=== PATIENT | female | born 1980 | race Caucasian/White ===

== ENCOUNTER → 2017-05-16 | Outpatient (CLI) | payer BC ==
[~2017-05-16] MED LIST: AZIT250T PO; BCPILLS PO; DAYQLIQ; GFNSR600 PO
== END | disposition home or self-care (01) ==
LOC: C.PAPS 08:18
PROVIDERS: ATTEND Obstetrics & Gynecology
DX: N87.1 Moderate cervical dysplasia (principal); R87.616 Satisfactory cervical smear but lacking transformation zone

== ENCOUNTER → 2017-11-29 | Outpatient (CLI) | payer BC | END | disposition home or self-care (01) | LOC: C.PAPS 09:20 | PROVIDERS: ATTEND Obstetrics & Gynecology | DX: Z01.419 Encounter for gynecological examination (general) (routine) without abnormal findings (principal) ==